=== PATIENT | female | born 1990 | race Caucasian/White ===

== ENCOUNTER 2022-07-29 05:09 | Inpatient (IN) | payer BC ==
[~2022-07-29 05:09] MED LIST: Sodium Chloride 0.9% 10 ML Syringe FLUSH PRN
[2022-07-29] MEDS: Lactated Ringers 1,000 ML IV SCH ×3 (06:01→11:13)
[2022-07-29] MEDS ORDERED: Citric Acid/Sodium Citrate Solution 30 ML Cup PO ONE (06:30)
[2022-07-29] MEDS ORDERED: Metoclopramide 10 MG/2 ML SDV IVPUSH ONE (06:30)
[2022-07-29] MEDS ORDERED: Morphine PF 1 MG/ML Amp ONE (06:56)
[2022-07-29] MEDS ORDERED: Oxytocin 10 Units/1 ML SDV ONE ×2 (06:56→07:03)
[2022-07-29] MEDS ORDERED: Ketorolac 30 MG/ML SDV ONE (06:56)
[2022-07-29] MEDS ORDERED: Ondansetron 4 MG/2 ML SDV ONE (06:56)
[2022-07-29] MEDS ORDERED: Lactated Ringers 2,000 ML ONE (06:56)
[2022-07-29] MEDS ORDERED: ceFAZolin 2 GM Vial ONE (06:57)
[2022-07-29] MEDS ORDERED: ceFAZolin 2 GM in Sodium Chloride 0.9% 50 ML IV ONE (07:00)
[2022-07-29] MEDS ORDERED: Bupivacaine 0.5% 30 ML SDV ONE (07:00)
[2022-07-29] MEDS ORDERED: Meperidine 50 MG/ML Vial IVPUSH PRN (07:31)
[2022-07-29] MEDS ORDERED: Ondansetron 4 MG/2 ML SDV IVPUSH PRN (07:31)
[2022-07-29] MEDS ORDERED: diphenhydrAMINE 50 MG/ML SDV IVPUSH PRN ×2 (07:31→09:27)
[2022-07-29] MEDS ORDERED: fentaNYL 100 MCG/2 ML SDV IVPUSH PRN (07:31)
[2022-07-29] MEDS ORDERED: Phenylephrine HCl In 0.9% NaCl 1 MG/10 ML Vial ONE (07:53)
[2022-07-29] MEDS ORDERED: Sodium Chloride 0.9% 10 ML Syringe FLUSH SCH (09:00)
[2022-07-29] MEDS ORDERED: Ondansetron 4 MG/2 ML SDV IV PRN (09:27)
[2022-07-29] MEDS ORDERED: Dextrose 5%-Lactated Ringers 1,000 ML IV SCH (09:27)
[2022-07-29] MEDS ORDERED: Naloxone 0.4 MG/ML SDV IVPUSH PRN (09:27)
[2022-07-29] MEDS ORDERED: Docusate Sodium 100 MG Cap PO PRN (09:27)
[2022-07-29] MEDS ORDERED: Acetaminophen/oxyCODONE 325-5 MG Tab PO PRN ×2 (09:27)
[2022-07-29] MEDS ORDERED: ePHEDrine 50 MG/ML SDV IVPUSH PRN (09:27)
[2022-07-29] MEDS: Prenatal Multivitamin with Calcium/Folic Acid/Iron Tab PO SCH (13:09)
[2022-07-29] MEDS: Simethicone 80 MG Tab.Chew PO SCH ×4 (13:09→22:35)
[2022-07-29] MEDS: Ketorolac 30 MG/ML SDV IVPUSH PRN ×2 (13:45→22:26)
[2022-07-29] MEDS ORDERED: Ibuprofen 600 MG Tab PO SCH (14:00)
[2022-07-30] MEDS: Simethicone 80 MG Tab.Chew PO SCH ×4 (06:33→23:18)
[2022-07-30] MEDS: Ketorolac 30 MG/ML SDV IVPUSH PRN (06:34)
[2022-07-30] MEDS: Prenatal Multivitamin with Calcium/Folic Acid/Iron Tab PO SCH ×2 (07:41→10:41)
[2022-07-30] MEDS: Ibuprofen 600 MG Tab PO PRN (23:50)
[2022-07-31] MEDS: Ibuprofen 600 MG Tab PO PRN (05:55)
[2022-07-31] MEDS: Prenatal Multivitamin with Calcium/Folic Acid/Iron Tab PO SCH (13:53)
[2022-07-31] MEDS: Simethicone 80 MG Tab.Chew PO SCH (13:53)
== END 2022-07-31 10:30 | disposition home or self-care (01) | DRG 540 ==
LOC: JD.OB 05:09
PROVIDERS: ADMIT Obstetrics & Gynecology; ATTEND Obstetrics & Gynecology
PROC: 10D00Z1 Extraction of Products of Conception, Low, Open Approach (ICD-10-PCS; principal; 2022-07-29)
DX: O34.211 Maternal care for low transverse scar from previous cesarean delivery (principal); Z37.0 Single live birth; Z3A.39 39 weeks gestation of pregnancy
CPT/HCPCS: 36415; 59025; 80306; 85025; 86592; 86850; 86900; 86901; 87340; 94762; A9270-GY; J0690; J1200; J1885; J2274; J2405; J2590; J2765; J3490; J7120; J7121